=== PATIENT | female | born 1980 ===

== ENCOUNTER 2017-07-06 14:17 | Emergency (ER) | payer OTHER ==
[2017-07-06 14:39] VITALS: BP 139/54; PULSE 92; RESP 20; TEMP 98; O2SAT 100
--- NOTE | 2017-07-06 15:43 | ED PDOC ---
HPI: CCC, URI, Sore Throat Time Seen by Provider: 07/06/17 14:46 Chief Complaint (Nursing): Flu-like Symptoms Chief Complaint (Provider): Flu-like Symptoms History Per: Patient History/Exam Limitations: no limitations Onset/Duration Of Symptoms: Days (x 2) Current Symptoms Are (Timing): Still Present Additional Complaint(s): 36 year old female presents to the ED complaining of runny nose, productive cough with green and clear sputum and a subjective fever, onset 3 days. She reports taking Ibuprofen and Mucinex but the symptoms persist. Patient denies any loss of appetite, chest pain, hemoptysis and shortness of breath. PMD: none Past Medical History Reviewed: Historical Data, Nursing Documentation, Vital Signs Vital Signs: Last Vital Signs Temp 98 F 07/06/17 14:35 Pulse 92 H 07/06/17 14:35 Resp 20 07/06/17 14:35 BP 139/54 L 07/06/17 14:35 Pulse Ox 100 07/06/17 15:49 - Medical History PMH: Hypothyroidism - Surgical History Surgical History: No Surg Hx - Family History Family History: States: Unknown Family Hx - Social History Current smoker - smoking cessation education provided: No Alcohol: None Drugs: Denies - Home Medications Home Medications: Ambulatory Orders Medication Instructions Recorded Dm/PE/Acetaminophen/Doxylamine 710 ml PO PRN PRN #1 liquid.seq 07/06/17 [Daytime-Nighttime Cold-Flu Liq] Oseltamivir [Tamiflu] 75 mg PO BID #10 cap 07/06/17 - Allergies Allergies/Adverse Reactions: Allergies Allergy/AdvReac Type Severity Reaction Status Date / Time No Known Allergies Allergy Verified 07/06/17 14:30 Review of Systems ROS Statement: Except As Marked, All Systems Reviewed And Found Negative (as per HPI) Constitutional: Positive for: Fever (subjective) ENT: Positive for: Nose Discharge Cardiovascular: Negative for: Chest Pain Respiratory: Positive for: Cough, Sputum (green and clear). Negative for: Shortness of Breath, Hemoptysis Physical Exam - Reviewed Nursing Documentation Reviewed: Yes Vital Signs Reviewed: Yes - Physical Exam Appears: Positive for: Well, No Acute Distress Head Exam: Positive for: ATRAUMATIC, NORMOCEPHALIC Skin: Positive for: Warm, Dry Eye Exam: Positive for: EOMI, PERRL ENT: Negative for: Pharyngeal Erythema, Tonsillar Exudate Neck: Positive for: Painless ROM, Supple Cardiovascular/Chest: Positive for: Regular Rate, Rhythm, Chest Non Tender. Negative for: Murmur Respiratory: Positive for: Normal Breath Sounds. Negative for: Respiratory Distress Gastrointestinal/Abdominal: Positive for: Soft. Negative for: Tenderness Back: Positive for: Normal Inspection. Negative for: Decreased ROM Extremity: Positive for: Normal ROM. Negative for: Deformity Lymphatic: Negative for: Adenopathy Neurologic/Psych: Positive for: Alert. Negative for: Motor/Sensory Deficits - ECG O2 Sat by Pulse Oximetry: 100 (RA) Pulse Ox Interpretation: Normal Medical Decision Making Medical Decision Making: Time: 15:02 Impression: influenza- like symptoms Initial plan: --Tamiflu 75 mg PO Scribe Attestation: Documented by Rebeca Soriano, acting as a scribe for Melissa Mcmullen MD Provider Scribe Attestation: All medical record entries made by the Scribe were at my direction and personally dictated by me. I have reviewed the chart and agree that the record accurately reflects my personal performance of the history, physical exam, medical decision making, and the department course for this patient. I have also personally directed, reviewed, and agree with the discharge instructions and disposition Disposition - Clinical Impression Clinical Impression: Influenza-like symptoms - Disposition Referrals: [facility] [Outside] ([facility]) Disposition: Routine/Home Disposition Time: 15:08 Condition: GOOD Prescriptions: Dm/PE/Acetaminophen/Doxylamine [Daytime-Nighttime Cold-Flu Liq] 710 ml PO PRN PRN #1 liquid.seq PRN Reason: Flu Symptoms Oseltamivir [Tamiflu] 75 mg PO BID #10 cap Instructions: Influenza (ED) Forms: [facility] ED School/Work Excuse Print Language: LIBERIAN
== END 2017-07-06 15:59 | disposition home or self-care (01) ==
LOC: H.ER 14:17
DX: R05 Cough (principal); E03.9 Hypothyroidism, unspecified

== ENCOUNTER 2017-08-12 15:45 | Emergency (ER) | payer OTHER ==
[2017-08-12 16:18] VITALS: BP 122/72; PULSE 71; RESP 16; TEMP 98.6; O2SAT 98
--- NOTE | 2017-08-12 17:17 | RAD ---
PROCEDURE: Left Foot Radiographs. HISTORY: Pain upon ambulation COMPARISON: None. FINDINGS: BONES: Bone alignment is normal. There is no acute displaced fracture or bone destruction. JOINTS: Normal. SOFT TISSUES: There is diffuse soft tissue swelling in the foot. OTHER FINDINGS: None. IMPRESSION: No acute fracture or dislocation. Please note occult/stress fractures cannot be excluded on plain radiographs, there is a persistent clinical concern, an MRI may be performed for further evaluation with Diffuse soft tissue swelling in the foot.
--- NOTE | 2017-08-12 17:44 | ED PDOC ---
Lower Extremity Pain/Injury Time Seen by Provider: 08/12/17 16:04 Chief Complaint (Nursing): Lower Extremity Problem/Injury Chief Complaint (Provider): Lower extremity problem History Per: Patient History/Exam Limitations: no limitations Onset/Duration Of Symptoms: Days (x1 week) Current Symptoms Are (Timing): Still Present Additional Complaint(s): Eva Eastman is a 36 year old female, with no past medical history, who presents to the emergency department complaining of left foot pain onset for x1 week. Patient reports the pain began at the bottom of the foot with associated swelling to the toes and it has radiated to the dorsal and heel portion of foot. Patient states the pain is worst with walking. She denies taking any medication or other medical complaints. PMD: None provided. Past Medical History Reviewed: Historical Data, Nursing Documentation, Vital Signs Vital Signs: Last Vital Signs Temp 98.6 F 08/12/17 16:14 Pulse 71 08/12/17 16:14 Resp 16 08/12/17 16:14 BP 122/72 08/12/17 16:14 Pulse Ox 98 08/12/17 16:14 - Medical History PMH: Hypothyroidism - Surgical History Surgical History: No Surg Hx - Family History Family History: States: Unknown Family Hx - Social History Current smoker - smoking cessation education provided: No Alcohol: None Drugs: Denies - Home Medications Home Medications: Ambulatory Orders Medication Instructions Recorded Dm/PE/Acetaminophen/Doxylamine 710 ml PO PRN PRN #1 liquid.seq 07/06/17 [Daytime-Nighttime Cold-Flu Liq] Oseltamivir [Tamiflu] 75 mg PO BID #10 cap 07/06/17 Ibuprofen [Motrin] 600 mg PO Q6 #20 tab 08/12/17 - Allergies Allergies/Adverse Reactions: Allergies Allergy/AdvReac Type Severity Reaction Status Date / Time No Known Allergies Allergy Verified 08/12/17 16:14 Review of Systems ROS Statement: Except As Marked, All Systems Reviewed And Found Negative Constitutional: Negative for: Other (trauma/fall) Musculoskeletal: Positive for: Foot Pain (left) Physical Exam - Reviewed Nursing Documentation Reviewed: Yes Vital Signs Reviewed: Yes - Physical Exam Appears: Positive for: Well, Non-toxic, No Acute Distress Head Exam: Positive for: ATRAUMATIC, NORMAL INSPECTION, NORMOCEPHALIC Skin: Positive for: Normal Color, Warm, Dry Eye Exam: Positive for: Normal appearance Neck: Positive for: Normal, Painless ROM, Supple Respiratory: Negative for: Respiratory Distress Extremity: Positive for: Tenderness (to plantar aspect and calcaneus of left foot). Negative for: Deformity, Swelling Neurologic/Psych: Positive for: Alert, Oriented - ECG O2 Sat by Pulse Oximetry: 98 (RA) Pulse Ox Interpretation: Normal Medical Decision Making Medical Decision Making: Initial Impression: foot pain Initial Plan: --Motrin Tab 600 mg PO --Foot left 3 views RAD --reevaluation 17:10 Foot X-Ray FINDINGS: BONES: Bone alignment is normal. There is no acute displaced fracture or bone destruction. JOINTS: Normal. SOFT TISSUES: There is diffuse soft tissue swelling in the foot. OTHER FINDINGS: None. IMPRESSION: No acute fracture or dislocation. Please note occult/stress fractures cannot be excluded on plain radiographs, there is a persistent clinical concern, an MRI may be performed for further evaluation with Diffuse soft tissue swelling in the foot. ~ Scribe Attestation: Documented by Shorty Duenas, acting as a scribe for Melissa Arias PA-C. Provider Scribe Attestation: All medical record entries made by the Scribe were at my direction and personally dictated by me. I have reviewed the chart and agree that the record accurately reflects my personal performance of the history, physical exam, medical decision making, and the department course for this patient. I have also personally directed, reviewed, and agree with the discharge instructions and disposition. Disposition - Clinical Impression Clinical Impression: Plantar fasciitis - Patient ED Disposition Is Patient to be Admitted: No - Disposition Referrals: [facility] [Outside] Disposition: Routine/Home Disposition Time: 18:37 Condition: STABLE Prescriptions: Ibuprofen [Motrin] 600 mg PO Q6 #20 tab Instructions: Plantar Fasciitis (ED) Forms: [employer] (Portuguese)
== END 2017-08-12 18:50 | disposition home or self-care (01) ==
LOC: H.ER 15:45
DX: M72.2 Plantar fascial fibromatosis (principal)

== ENCOUNTER 2017-09-06 14:40 | Emergency (ER) | payer OTHER ==
[2017-09-06 15:09] VITALS: BP 115/68; PULSE 63; RESP 16; TEMP 98.8; O2SAT 100
--- NOTE | 2017-09-06 16:10 | ED PDOC ---
HPI: Female Pain Time Seen by Provider: 09/06/17 15:26 Chief Complaint (Nursing): Abdominal Pain Chief Complaint (Provider): Abdominal Pain History Per: Patient History/Exam Limitations: no limitations Onset/Duration Of Symptoms: Days (x 1 week) Current Symptoms Are (Timing): Still Present Additional Complaint(s): Eva is a 36 y/o female who presents to the ED c/o lower abdominal pain for the past week. Patient states during a routine pap smear that she tested HPV positive. She is having clear vaginal discharge that is sometimes blood tinged, vaginal itching that she scratches, and burning after, but not during, urination. PMD: None Past Medical History Reviewed: Historical Data, Nursing Documentation, Vital Signs Vital Signs: Last Vital Signs Temp 98.8 F 09/06/17 15:04 Pulse 63 09/06/17 15:04 Resp 16 09/06/17 15:04 BP 115/68 09/06/17 15:04 Pulse Ox 100 09/06/17 15:04 - Medical History PMH: Hypothyroidism, Sexually Transmitted Disease (HPV) - Surgical History Surgical History: No Surg Hx - Family History Family History: States: Unknown Family Hx - Social History Drugs: Denies - Home Medications Home Medications: Ambulatory Orders Medication Instructions Recorded Dm/PE/Acetaminophen/Doxylamine 710 ml PO PRN PRN #1 liquid.seq 07/06/17 [Daytime-Nighttime Cold-Flu Liq] Oseltamivir [Tamiflu] 75 mg PO BID #10 cap 07/06/17 Ibuprofen [Motrin] 600 mg PO Q6 #20 tab 08/12/17 Naproxen [Naprosyn] 500 mg PO BID PRN #15 tablet 09/06/17 - Allergies Allergies/Adverse Reactions: Allergies Allergy/AdvReac Type Severity Reaction Status Date / Time No Known Allergies Allergy Verified 08/12/17 16:14 Review of Systems ROS Statement: Except As Marked, All Systems Reviewed And Found Negative Gastrointestinal: Positive for: Abdominal Pain (lower) Genitourinary Female: Positive for: Vaginal Discharge (clear, sometimes blood tinged), Other (vaginal itching, burning after urination). Negative for: Dysuria, Hematuria Physical Exam - Reviewed Nursing Documentation Reviewed: Yes Vital Signs Reviewed: Yes - Physical Exam Appears: Positive for: Well, Non-toxic, No Acute Distress Head Exam: Positive for: ATRAUMATIC, NORMAL INSPECTION, NORMOCEPHALIC Skin: Positive for: Normal Color, Warm, Dry Eye Exam: Positive for: EOMI, Normal appearance, PERRL ENT: Positive for: Normal ENT Inspection Neck: Positive for: Normal, Painless ROM, Supple Cardiovascular/Chest: Positive for: Regular Rate, Rhythm. Negative for: Murmur Respiratory: Positive for: Normal Breath Sounds. Negative for: Respiratory Distress Gastrointestinal/Abdominal: Positive for: Normal Exam, Bowel Sounds, Soft. Negative for: Tenderness Pelvic Exam: Positive for: Bimanual Exam Normal (crts: Brittney RN). Negative for: Active Bleeding, Blood, Tender W/Cervical Motion, Tender Adnexa Extremity: Positive for: Normal ROM Neurologic/Psych: Positive for: Alert, Oriented - ECG O2 Sat by Pulse Oximetry: 100 (RA) Pulse Ox Interpretation: Normal Medical Decision Making Medical Decision Making: Time: 15:27 Initial Impression: Lower Abdominal Pain, Vaginal Itching Initial Plan: --Urine --Urine Dip --Chlamydia/GC Culture --Genital Culture --Urinalysis Scribe Attestation: Documented by Khari Cowart, acting as a scribe for Penny Kruger Provider Scribe Attestation: All medical record entries made by the Scribe were at my direction and personally dictated by me. I have reviewed the chart and agree that the record accurately reflects my personal performance of the history, physical exam, medical decision making, and the department course for this patient. I have also personally directed, reviewed, and agree with the discharge instructions and disposition. Disposition - Clinical Impression Clinical Impression: Pelvic pain - Disposition Disposition: Routine/Home Disposition Time: 18:35 Condition: STABLE Additional Instructions: FOLLOW-UP WITH YOUR OB-AREA COUNSELOR WITHIN 2 DAYS FOR REEVALUATION. Prescriptions: Naproxen [Naprosyn] 500 mg PO BID PRN #15 tablet PRN Reason: Pain, Moderate (4-7) Instructions: Pelvic Pain (ED) Forms: [employer] (Gambian) Print Language: MOHAWK
[2017-09-06 16:21] LABS: SQUAMOUS EPITHIAL 1 /hpf (0-5); URINE BACTERIA RARE (<OCC); URINE BILIRUBIN NEGATIVE (NEGATIVE); URINE BLOOD NEGATIVE (NEGATIVE); URINE CLARITY SLIGHTY-CLOUDY (Clear); URINE COLOR YELLOW (YELLOW); URINE GLUCOSE (UA) NEG (Normal); URINE HYALINE CAST 0-2 /hpf (0-2); URINE LEUKOCYTE ESTERASE NEG Leu/uL (Negative); URINE NITRATE NEGATIVE (NEGATIVE); URINE PROTEIN NEGATIVE (NEGATIVE); URINE UROBILINOGEN 0.2-1.0 mg/dL (0.2-1.0)
--- NOTE | 2017-09-06 18:16 | US ---
HISTORY: Lower abd pain COMPARISON: None available. TECHNIQUE: Grayscale, color Doppler and spectral evaluation of the pelvis performed transabdominally and transvaginally FINDINGS: UTERUS: Measures 8.2 x 3.8 x 4.3 cm. Anteverted. Normal in size and appearance. No fibroid or other mass lesion seen. ENDOMETRIUM: Intrauterine device in place. CERVIX: No cervical abnormality identified. RIGHT OVARY: Measures 2.5 x 1.2 x 1.4 cm. No solid mass. Normal flow. LEFT OVARY: Measures 2.0 x 1.3 x 2.1 cm. No solid mass. Normal flow. FREE FLUID: No significant free fluid noted. OTHER FINDINGS: Prominent pelvic vasculature. IMPRESSION: Unremarkable pelvic ultrasound.
== END 2017-09-06 19:08 | disposition home or self-care (01) ==
LOC: H.ER 14:40
DX: R10.2 Pelvic and perineal pain (principal); E03.9 Hypothyroidism, unspecified

== ENCOUNTER 2018-03-24 09:03 | Emergency (ER) | payer SELFPAY ==
[2018-03-24 09:16] VITALS: BMI 30.9
[2018-03-24 09:18] VITALS: BP 122/79; PULSE 65; RESP 20; TEMP 98.6; O2SAT 98
[2018-03-24] MEDS ORDERED: Sodium Chloride 0.9% 1,000 ML IV STA (09:49)
--- NOTE | 2018-03-24 09:52 | ED PDOC ---
HPI: Headache Time Seen by Provider: 03/24/18 09:24 Chief Complaint (Nursing): Headache History Per: Patient History/Exam Limitations: no limitations Onset/Duration Of Symptoms: Days (3) Current Symptoms Are (Timing): Still Present Severity: Moderate Pain Scale Rating Of: 4 Quality: Dull, Pressure Preceeding Symptoms: Known Migraine Symptoms Associated Symptoms: Photophobia, Nausea, Vomiting. denies: Blurred Vision, Extremity Weakness Additional History Per: Patient Additional Complaint(s): Patient presenting with headache for 3 days. Headache started gradually, no sudden onset or thunderclap headache. Headache is right sided and pounding. Headache is constant with waves. Headache was relieved with excedrin she took. Associated with nausea and vomiting. She reports similar headaches many times in the past. She did not have recent imaging or neurology evaluation. - Risk Factors SAH Risk Factors: Nest Degree Relative(s) W/SAH, Sudden Onset Of Pain, Worst Headache Of Life Past Medical History Reviewed: Historical Data, Nursing Documentation, Vital Signs Vital Signs: Last Vital Signs Temp 98.6 F 03/24/18 09:30 Pulse 65 03/24/18 09:30 Resp 20 03/24/18 09:30 BP 122/79 03/24/18 09:30 Pulse Ox 98 03/24/18 09:30 - Medical History PMH: Hypothyroidism, Sexually Transmitted Disease (HPV) Other PMH: [place] palsy - Surgical History Surgical History: No Surg Hx - Family History Family History: States: Unknown Family Hx - Home Medications Home Medications: Ambulatory Orders Medication Instructions Recorded Dm/PE/Acetaminophen/Doxylamine 710 ml PO PRN PRN #1 liquid.seq 07/06/17 [Daytime-Nighttime Cold-Flu Liq] Oseltamivir [Tamiflu] 75 mg PO BID #10 cap 07/06/17 Ibuprofen [Motrin] 600 mg PO Q6 #20 tab 08/12/17 Naproxen [Naprosyn] 500 mg PO BID PRN #15 tablet 09/06/17 - Allergies Allergies/Adverse Reactions: Allergies Allergy/AdvReac Type Severity Reaction Status Date / Time No Known Allergies Allergy Verified 08/12/17 16:14 Review of Systems ROS Statement: Except As Marked, All Systems Reviewed And Found Negative Constitutional: Negative for: Fever Cardiovascular: Negative for: Chest Pain Neurological: Positive for: Headache. Negative for: Weakness, Numbness, Seizures, Altered Mental Status, Dizziness Psych: Positive for: Anxiety Physical Exam - Reviewed Nursing Documentation Reviewed: Yes Vital Signs Reviewed: Yes - Physical Exam Appears: Positive for: Well, Non-toxic, No Acute Distress Head Exam: Positive for: ATRAUMATIC, NORMAL INSPECTION Skin: Positive for: Normal Color, Warm, Dry Eye Exam: Positive for: EOMI, PERRL. Negative for: Nystagmus ENT: Positive for: Normal ENT Inspection Neck: Positive for: Painless ROM, Supple Cardiovascular/Chest: Positive for: Regular Rate, Rhythm. Negative for: Tachycardia Respiratory: Positive for: Normal Breath Sounds. Negative for: Rales, Rhonchi, Wheezing Gastrointestinal/Abdominal: Positive for: Soft. Negative for: Tenderness Extremity: Positive for: Normal ROM Neurologic/Psych: Positive for: Alert, raw stock dyeing machine tender II-XII (intact), Oriented, Gait ( steady). Negative for: Motor/Sensory Deficits, Aphasia, Facial Droop - Laboratory Results Result Diagrams: 03/24/18 09:57 03/24/18 09:57 - ECG O2 Sat by Pulse Oximetry: 98 - Progress Re-evaluation Time: 12:10 Condition: Re-examined, Improved Medical Decision Making Medical Decision Making: Impression: Headache, recurrent headaches Diff dx include recurrent primary headache: migraine, cluster, or tension headaches. Rule out secondary headache: brain mass, or IIH. No suspicion for SAH based on HPI, PE, and PMH. \ Plan: CBC BMP CT head to rule out brain mass Upreg Reglan IV Toraol IV NS IV reassess Time: [address] RESULTS FINDINGS: HEMORRHAGE: No intracranial hemorrhage. BRAIN: No mass effect or edema. No atrophy or chronic microvascular ischemic changes. Very few 1 to 3 mm benign-appearing calcifications in close proximity with the calvarium and/or falx and/or left frontal lobe cortex are noted. VENTRICLES: Unremarkable. No hydrocephalus. CALVARIUM: Unremarkable. PARANASAL SINUSES: Unremarkable as visualized. No significant inflammatory changes. MASTOID AIR CELLS: Unremarkable as visualized. No inflammatory changes. OTHER FINDINGS: None. IMPRESSION: No intracranial hemorrhage or mass effect. Disposition - Clinical Impression Clinical Impression: Headache - Patient ED Disposition Is Patient to be Admitted: No Doctor Will See Patient In The: Office Counseled Patient/Family Regarding: Studies Performed, Diagnosis, Need For Followup - Disposition Referrals: [facility] [Outside] Jerardo Rogers MD [Staff Provider] - Disposition: Routine/Home Disposition Time: 12:10 Condition: GOOD Additional Instructions: [place], thank you for letting us take care of you today. Your provider was Reji Jackson MD and you were treated for HEADACHES/ NAUSEA. The emergency medical care you received today was directed at your acute symptoms. If you were prescribed any medication, please fill it and take as directed. It may take several days for your symptoms to resolve. Return to the Emergency Department if your symptoms worsen, do not improve, or if you have any other problems. Please contact your doctor or call one of the physicians/clinics you have been referred to that are listed on the Patient Visit Information form that is included in your discharge packet. Bring any paperwork you were given at discharge with you along with any medications you are taking to your follow up visit. Our treatment cannot replace ongoing medical care by a primary care provider outside of the emergency department. Thank you for allowing the [facility] team to be part of your care today. If you had an X-Ray or CT scan: A Radiologist will review the ED reading if any change in treatment is needed we will contact you. If you had a blood, urine, or wound culture: It will take several days for the results, if any change in treatment is needed we will contact you. If you had an STI test: It will take 48 hours for the results. Please call after 1 week if you have not heard back. Instructions: Migraine Headaches in Adults
[2018-03-24 10:04] LABS: BASO # 0.1 K/uL (0.0-0.2); BASO % 0.8 % (0.0-2.0); EOS # 0.1 K/uL (0.0-0.7); EOS % 1.8 % (0.0-4.0); HEMOGLOBIN 13.8 g/dL (12.0-16.0); LYMPH # 1.5 K/uL (1.0-4.3); LYMPH % 21.2 % (20.0-40.0); MEAN CELL VOLUME 83.8 fl (81.0-99.0); MEAN CORPUSCULAR HEMOGLOBIN 28.4 pg (27.0-31.0); MEAN CORPUSCULAR HGB CONC 33.8 g/dL (33.0-37.0); MONO # 0.5 K/uL (0.0-0.8); MONO % 6.9 % (0.0-10.0); NEUT # 5.1 K/uL (1.8-7.0); NEUT % 69.3 % (50.0-75.0); NRBC % 0.1 % (0.0-0.0); RBC 4.87 Mil/uL (3.80-5.20); WHITE BLOOD COUNT 7.3 K/uL (4.8-10.8)
[2018-03-24 10:21] LABS: BLOOD UREA NITROGEN 9 mg/dl (7-17); CALCIUM 9.1 mg/dL (8.4-10.2); GFR NON-AFRICAN AMERICAN > 60
--- NOTE | 2018-03-24 10:41 | CT ---
Date of service: 03/24/2018 PROCEDURE: CT HEAD WITHOUT CONTRAST. HISTORY: Recurrent headaches COMPARISON: None available. TECHNIQUE: Axial computed tomography images were obtained through the head/brain without intravenous contrast. Radiation dose: Total exam DLP = 964 mGy-cm. This CT exam was performed using one or more of the following dose reduction techniques: Automated exposure control, adjustment of the mA and/or kV according to patient size, and/or use of iterative reconstruction technique. FINDINGS: HEMORRHAGE: No intracranial hemorrhage. BRAIN: No mass effect or edema. No atrophy or chronic microvascular ischemic changes. Very few 1 to 3 mm benign-appearing calcifications in close proximity with the calvarium and/or falx and/or left frontal lobe cortex are noted. VENTRICLES: Unremarkable. No hydrocephalus. CALVARIUM: Unremarkable. PARANASAL SINUSES: Unremarkable as visualized. No significant inflammatory changes. MASTOID AIR CELLS: Unremarkable as visualized. No inflammatory changes. OTHER FINDINGS: None. IMPRESSION: No intracranial hemorrhage or mass effect.
== END 2018-03-24 12:37 | disposition home or self-care (01) ==
LOC: H.ER 09:03
DX: R51 Headache (principal)
CPT/HCPCS: 70450; 80048; 85025; 96374; 96375; 99284; J1885; J2765; J7030

== ENCOUNTER 2018-05-06 17:29 | Emergency (ER) | payer SELFPAY ==
[2018-05-06 17:29] VITALS: BMI 30.9
[2018-05-06 18:30] VITALS: BP 110/66; PULSE 61; RESP 16; TEMP 98.4; O2SAT 98
--- NOTE | 2018-05-06 22:19 | ED PDOC ---
Lower Extremity Pain/Injury Time Seen by Provider: 05/06/18 19:01 Chief Complaint (Nursing): Lower Extremity Problem/Injury Chief Complaint (Provider): Right ankle/ foot pain History Per: Patient History/Exam Limitations: no limitations Current Symptoms Are (Timing): Still Present Severity: Moderate Additional Complaint(s): 37 year old female with no pertinent past medical history presents to the ED with complaints of right ankle/foot pain that started 1x day ago. Patient states that she twisted her ankle while walking yesterday, but the pain has persisted today which is what prompted her visit to the ED today. Patient denies having any other associated symptoms. PMD: Daniel Greene MD - Ankle/Foot Description Of Injury: Twisted (while walking) Past Medical History Reviewed: Historical Data, Nursing Documentation, Vital Signs Vital Signs: Last Vital Signs Temp 98.4 F 05/06/18 18:28 Pulse 61 05/06/18 18:28 Resp 16 05/06/18 18:28 BP 110/66 05/06/18 18:28 Pulse Ox 98 05/06/18 18:28 - Medical History PMH: Hypothyroidism, Sexually Transmitted Disease (HPV) - Family History Family History: States: Unknown Family Hx - Home Medications Home Medications: Ambulatory Orders Medication Instructions Recorded Dm/PE/Acetaminophen/Doxylamine 710 ml PO PRN PRN #1 liquid.seq 07/06/17 [Daytime-Nighttime Cold-Flu Liq] Oseltamivir [Tamiflu] 75 mg PO BID #10 cap 07/06/17 Ibuprofen [Motrin] 600 mg PO Q6 #20 tab 08/12/17 Naproxen [Naprosyn] 500 mg PO BID PRN #15 tablet 09/06/17 Acetaminophen/Butalbital/Caf 1 tab PO TID PRN #15 tab 03/24/18 [Fioricet] - Allergies Allergies/Adverse Reactions: Allergies Allergy/AdvReac Type Severity Reaction Status Date / Time No Known Allergies Allergy Verified 08/12/17 16:14 Review of Systems ROS Statement: Except As Marked, All Systems Reviewed And Found Negative Musculoskeletal: Positive for: Foot Pain (right foot/ankle) Physical Exam - Reviewed Nursing Documentation Reviewed: Yes Vital Signs Reviewed: Yes - Physical Exam Appears: Positive for: Well, Non-toxic, No Acute Distress Head Exam: Positive for: ATRAUMATIC, NORMOCEPHALIC Skin: Positive for: Normal Color Cardiovascular/Chest: Positive for: Regular Rate, Rhythm Respiratory: Positive for: Normal Breath Sounds Extremity: Positive for: Tenderness (mild tenderness and swelling over lateral malleolus. ). Negative for: Swelling (patient is ambulating with mild pain. Mild swelling on lateral malleolus) Neurologic/Psych: Positive for: Alert, Oriented (3x) - ECG O2 Sat by Pulse Oximetry: 98 (RA) Pulse Ox Interpretation: Normal - Radiology X-Ray: Interpreted by Me, Viewed By Me Medical Decision Making Medical Decision Makin:01 Initial impression: 37 year old female with right ankle/foot pain. Initial plan: * xray foot right 3 views * xray ankle right 3 views * motrin tab 600 mg PO * reevaluation 22:30 Xray is negative, no abnormal findings. Upon provider reevaluation patient is feeling better, is medically stable, and requires no further treatment in the ED at this time. Patient will be discharged with an joey wrap given to her. Counseling was provided and all questions were answered regarding diagnosis and need for follow up with orthopedist in a few days. There is agreement to discharge plan. Return if symptoms persist or worsen. Scribe Attestation: Documented by Jocelyne Watkins, acting as a scribe for Cathryn Vieira PA-C. Provider Scribe Attestation: All medical record entries made by the Scribe were at my direction and personally dictated by me. I have reviewed the chart and agree that the record accurately reflects my personal performance of the history, physical exam, medical decision making, and the department course for this patient. I have also personally directed, reviewed, and agree with the discharge instructions and disposition. Disposition - Clinical Impression Clinical Impression: Ankle injury, Foot injury - Disposition Referrals: Arianna Baires MD [Staff Provider] - Disposition: Routine/Home Disposition Time: 22:30 Condition: FAIR Instructions: Ankle Sprain, Foot Sprain (DC) Forms: [employer] (Citizen Of [place]), [employer] ([place]), [facility] ED School/Work Excuse Print Language: TURKMEN
--- NOTE | 2018-05-07 13:40 | RAD ---
Date of service: 05/06/2018 PROCEDURE: Right Foot Radiographs. HISTORY: ankle pain COMPARISON: None. FINDINGS: BONES: Normal. No fracture. JOINTS: Normal. SOFT TISSUES: Normal. OTHER FINDINGS: None. IMPRESSION: Normal right foot radiographs.
--- NOTE | 2018-05-07 13:40 | RAD ---
Date of service: 05/06/2018 PROCEDURE: Right Ankle Radiographs. HISTORY: ankle pain COMPARISON: None FINDINGS: BONES: Normal. No fracture. JOINTS: Normal. No osteoarthritis. Ankle mortise maintained. Talar dome intact SOFT TISSUES: Normal. OTHER FINDINGS: None. IMPRESSION: Normal right ankle radiographs.
== END 2018-05-06 22:58 | disposition home or self-care (01) ==
LOC: H.ER 17:29
DX: S99.911A Unspecified injury of right ankle, initial encounter (principal); X50.9XXA Other and unspecified overexertion or strenuous movements or postures, initial encounter; Y92.89 Other specified places as the place of occurrence of the external cause; E03.9 Hypothyroidism, unspecified

== ENCOUNTER 2018-09-20 14:19 | Emergency (ER) | payer SELFPAY ==
[2018-09-20 14:20] VITALS: BMI 30.9
[2018-09-20 14:33] VITALS: RESP 18; TEMP 98
--- NOTE | 2018-09-20 15:00 | ED PDOC ---
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 Patient describes the pain as a pressure, and is unable to localize the pain to one area. Patient states that sometimes the pain worsens with movement, and sometimes it worsens with direct pressure. Patient reports taking Advil x3 days ago with some relief. Otherwise: (-) falls, (-) trauma, (-) headaches, (-) dizziness, (-) fevers, (-) nausea, (-) vomiting, (-) weakness, (-) numbness (-) chest pain, (-) abdominal pain (-) N/V/D. Last menstrual period: Beginning of September 2018. PMD: None. Past Medical History Reviewed: Historical Data, Nursing Documentation, Vital Signs Vital Signs: Last Vital Signs Temp 98 F 09/20/18 14:31 Pulse 64 09/20/18 14:31 Resp 18 09/20/18 14:31 BP 121/72 09/20/18 14:31 Pulse Ox - Medical History PMH: Hypothyroidism, Sexually Transmitted Disease (HPV) - Surgical History Surgical History: No Surg Hx - Family History Family History: States: No Known Family Hx - Social History Current smoker - smoking cessation education provided: No Alcohol: None Drugs: Denies - Home Medications Home Medications: Ambulatory Orders Medication Instructions Recorded Dm/PE/Acetaminophen/Doxylamine 710 ml PO PRN PRN #1 liquid.seq 07/06/17 [Daytime-Nighttime Cold-Flu Liq] Oseltamivir Cap [Tamiflu] 75 mg PO BID #10 cap 07/06/17 Ibuprofen [Motrin] 600 mg PO Q6 #20 tab 08/12/17 Naproxen [Naprosyn] 500 mg PO BID PRN #15 tablet 09/06/17 Acetaminophen/Butalbital/Caf 1 tab PO TID PRN #15 tab 03/24/18 [Fioricet] RX: Naproxen 500 mg PO BID PRN #20 tab 09/20/18 - Allergies Allergies/Adverse Reactions: Allergies Allergy/AdvReac Type Severity Reaction Status Date / Time No Known Allergies Allergy Verified 08/12/17 16:14 Review of Systems ROS Statement: Except As Marked, All Systems Reviewed And Found Negative Constitutional: Negative for: Fever Cardiovascular: Negative for: Chest Pain Gastrointestinal: Negative for: Nausea, Abdominal Pain, Diarrhea Musculoskeletal: Positive for: Arm Pain (right arm pain), Leg Pain (right leg pain) Neurological: Negative for: Weakness, Headache, Dizziness Physical Exam - Reviewed Nursing Documentation Reviewed: Yes Vital Signs Reviewed: Yes - Physical Exam Comments: GENERAL APPEARANCE: Patient is awake, alert, oriented x 3, in no acute distress. Resting comfortably. SKIN: Warm, dry; (-) cyanosis. NECK Supple, FROM ENT: Mucus membranes moist. Airway patent, (-) stridor. CHEST AND RESPIRATORY: (-) rales, (-) rhonchi, (-) wheezes; breath sounds equal bilaterally. Respirations even and nonlabored. HEART AND CARDIOVASCULAR: (-) irregularity Right upper extremity: Full ROM of extremity, (-) tenderness, (-) deformity, (-) erythema, (-) effusion. Sensation in tact. Pulses present. Right lower extremity: Full ROM of extremity, (-) tenderness, (-) deformity, (-) erythema, (-) effusion. Sensation in tact. Pulses present. ABDOMEN: Soft, (-) distention, (-) tenderness, (-) guarding. NEURO AND PSYCH: Mental status as above. Gait: steady. Speech: clear. (-) facial asymmetry (-) aphasia. EOMI and painless. Pupils equal and reactive. - Laboratory Results Urine POC: Negative Medical Decision Making Medical Decision Makin:35 Clinical impression: 37 year old female with musculoskeletal pain Initial plan: * upreg * toradol 30 mg IM once * reevaluation 1530 On re-evaluation, patient reports improvement of symptoms and is requesting discharge to go to work. On exam, patient remains AAOx3, in no acute distress. Vitals stable. Lab/Diagnostic results d/w the patient in great detail. Diagnosis of musculoskeletal extremity pain d/w the patient. Based on history, exam and diagnostic results, plan will be for outpatient follow up. Patient instructed to follow-up with pmd / referral provided / the clinic in 1- 2 days without fail. Advised to take medication as prescribed. Return to the emergency room at any time for any new or worsening symptoms. Patient states she fully agrees with and understands discharge instructions. States that she agrees with the plan and disposition. Verbalized and repeated discharge instructions and plan. I have given the patient opportunity to ask any additional questions. Scribe Attestation: Documented byJocelyne Watkins, acting as a scribe for Jocelyne Koch Provider Scribe Attestation: All medical record entries made by the Scribe were at my direction and personally dictated by me. I have reviewed the chart and agree that the record accurately reflects my personal performance of the history, physical exam, medical decision making, and the department course for this patient. I have also personally directed, reviewed, and agree with the discharge instructions and disposition. Disposition - Clinical Impression Clinical Impression: Musculoskeletal pain of extremity - Patient ED Disposition Is Patient to be Admitted: No Counseled Patient/Family Regarding: Studies Performed, Diagnosis, Need For Followup, Rx Given - Disposition Referrals: [facility] [Outside] Julio Warner III, MD [Staff Provider] - Disposition: Routine/Home Disposition Time: 15:30 Condition: STABLE Additional Instructions: The emergency medical care you received today was directed at your acute symptoms. If you were prescribed any medication, please fill it and take as directed. It may take several days for your symptoms to resolve. Return to the Emergency Department if your symptoms worsen, do not improve, or if you have any other problems. Please contact your doctor in 2 days for re-evaluation and follow up / or call one of the physicians/clinics you have been referred to that are listed on the Patient Visit Information form that is included in your discharge packet. Bring any paperwork you were given at discharge with you along with any medications you are taking to your follow up visit. Our treatment cannot replace ongoing medical care by a primary care provider (PCP) outside of the emergency department. Prescriptions: RX: Naproxen 500 mg PO BID PRN #20 tab PRN Reason: Pain, Moderate (4-7) Instructions: Muscle and Bone Pain (DC) Forms: [employer] (Chinese) Print Language: KHMER - POA Present On Arrival: None
[2018-09-20 16:38] VITALS: BP 122/80; PULSE 78; O2SAT 100
== END 2018-09-20 16:36 | disposition home or self-care (01) ==
LOC: H.ER 14:19
DX: M79.18 Myalgia, other site (principal)
CPT/HCPCS: 96372; 99283; J1885